=== PATIENT | female | born 1965 | race Caucasian/White ===

== ENCOUNTER 2023-06-03 07:39 | Emergency (ER) | payer BC, SELFPAY ==
[2023-06-03 07:40] VITALS: BP 186/124
[2023-06-03 08:04] VITALS: BP 161/98
--- NOTE | 2023-06-03 08:08 | ED.GENMED ---
History of Present Illness
General
Chief Complaint: Blood Pressure Problem
Time Seen by Provider: 06/03/23 07:45
Travel History
Have you had any contact with someone who has COVID-19?: No
Do you have any symptoms of coronavirus? Fever > 100 degrees, chills, cough, shortness of breath, sore throat, loss of taste or smell, muscle aches, or headache?: No
History of Present Illness
History of Present Illness:
58-year-old female with history of hypertension and hyperlipidemia presents to the emergency department for evaluation of general sensation of jitteriness and anxiety coupled with heart palpitations beginning this morning. She noted that her blood
pressure was elevated in the 150s systolic and as a result took an additional 10 mg of lisinopril. She denies any chest pain or shortness of breath. Denies any recent health changes or medication changes. No recent fevers, chills, or sweats.
Review of Systems
Review of Systems
Allergies reviewed?: Yes
All Other Systems: ROS reviewed and negative except as documented in HPI and ROS
Phy Exam
Physical Exam
Physical Exam:
GEN: Well appearing, NAD, WDWN
Eyes: PERRLA, EOMs intact, no scleral icterus
HENT: NCAT, oral mucosa moist, no JVD, no cervical adenopathy.
Lungs: CTAB, no wheezes, rales, rhonchi, normal chest wall excursion
Cardiac: Mildly tachycardic, regular, no murmurs
Abdomen: S, NT, ND, NABS, no masses or hepatosplenomegaly
Neuro: AO x 3, no focal deficits to BUE/BLE. Generalized extremity tremors noted
MSK: No gross deformity or ecchymosis. No edema. No digital clubbing
Skin: No rashes, petechiae. Normal color, no pallor or jaundice.
Psych: Calm, cooperative, proper hygiene
Course
Orders/Labs/Results
Orders:
Orders
06/03/23 07:56
Electrocardiogram (*1) Urgent
Reason for Study: Hypertension, Benign
06/03/23 07:57
EKG- Treatment ONCE
06/03/23 08:09
Complete Blood Count/With Diff Urgent
Comprehensive Metabolic Panel Urgent
Free T4 Urgent
TSH Reflex To Free T4 Urgent
Abnormal Lab Results
06/03/23
08:09
RBC 4.13 L 10^6/uL
(4.20-5.40)
Hct 35.7 L %
(37.0-47.0)
MCH 32.4 H pg
(27.0-31.0)
MCHC 37.5 H g/dL
(33.0-37.0)
Carbon Dioxide 20 L mmol/L
(22-30)
BUN 20 H mg/dl
(7-17)
Glucose 116 H mg/dl
(70-99)
TSH (Reflex) 5.90 H uIU/ml
(0.47-4.68)
06/03/23 08:09
06/03/23 08:09
Vital Signs
Initial and Last Documented VS:
Initial Vital Signs
Temp Pulse Resp BP Pulse Ox
98.1 F 108 18 186/124 100
06/03/23 07:40 06/03/23 07:40 06/03/23 07:40 06/03/23 07:40 06/03/23 07:40
Last Documented Vital Signs
Temp Pulse Resp BP Pulse Ox
98.1 F 78 12 153/91 100
06/03/23 07:40 06/03/23 09:15 06/03/23 09:15 06/03/23 09:00 06/03/23 09:15
MDM/Problems Addressed
MDM/Problems Addressed:
58-year-old female presenting with symptoms of jitteriness and heart palpitations. EKG is unremarkable and she showed no signs of cardiac arrhythmia while in the emergency department. She certainly does have a mild resting tremor however labs are
otherwise reassuring, mildly elevated TSH with normal T4 reassuring against thyroid disorder. Unclear etiology to the symptoms but the patient is reassured there does not appear to be any major medical abnormality at this time. She has no focal
abnormalities to suggest stroke additionally no fevers or chills concerning for infectious etiology to the jitteriness. Recommend primary care follow-up if symptoms persist
Comment
Comment:
EKG independently interpreted by me shows normal sinus rhythm at a rate of [address] changes concerning for ischemia, QTc of 430
*Critical Care Note
Total Time (30-74mins, 75-104mins- exclusive of procedures): Not Applicable
ED Attending Note
-
Portions of this chart may have been created with voice recognition software.� Occasional wrong word or��sound alike� substitutions may have occurred due to the inherent limitations of voice recognition software.
Discharge Plan
Departure
Patient Disposition: Home (Routine Discharge)
Date of Disposition: 06/03/23
Time of Disposition: 09:44
Patient with high blood pressure during this ER visit?: No
Discharge Problem:
Palpitations
Instructions: Palpitations ED
Prescriptions:
No Action
multivitamin Tablet
1 tab PO DAILY
calcium 600 mg Capsule
600 mg PO DAILY
atorvastatin 20 mg Tablet
20 mg PO HS
lisinopril 10 mg Tablet
10 mg PO DAILY
omega [id number] oil [Fish Oil] 1,200 (144-216) mg Capsule
1 cap PO DAILY
Referrals:
Madhuri Avery CRNP [Family Provider] -
Interventions
Interventions:
*General Assessment Last Done: 06/03/23 07:40
*Neglect/Abuse Screening Last Done: 06/03/23 07:40
ED- Fall Risk Assessment Last Done: 06/03/23 08:29
*ED COVID-19 Vaccine History Last Done: 06/03/23 07:40
*Nursing Disposition Last Done: 06/03/23 10:24
ED- Cardiac Assessment Last Done: 06/03/23 07:55
ED- Neurological Assessment Last Done: 06/03/23 07:56
ED- Pulmonary Assessment Last Done: 06/03/23 07:56
Discharge Date and Time
Discharge Date/Time: 06/03/23 10:25
[2023-06-03 08:17] LABS: % Basophils 0.6 % (0-2); % Eosinophils 0.8 % (0-6); % Immature Granulocytes 0.4 % (0-0.5); % Lymphocytes 28.2 % (20.5-51.1); % Monocytes 5.8 % (1.7-9.3); % Neutrophils 64.2 % (42.2-75.2); Absolute Eosinophils 0.1 10^3/uL (0-0.7); Absolute Monocytes 0.4 10^3/uL (0.1-0.6); Absolute Neutrophils 4.6 10^3/uL (1.4-6.5); Hematocrit 35.7 % (37.0-47.0); Hemoglobin 13.4 g/dL (12.0-16.0); Mean Corp Hgb Conc. 37.5 g/dL (33.0-37.0); Mean Corpuscular Hgb 32.4 pg (27.0-31.0); Mean Corpuscular Volume 86.4 fL (81.0-99.0); Mean Platelet Volume 9.1 fL (7.4-10.4); Nucleated Red Blood Cells % 0 %; Platelet Count 315 10^3/uL (130-400); Red Blood Cell Count 4.13 10^6/uL (4.20-5.40); Red Cell Dist. Width 11.5 % (11.5-14.5); White Blood Cell Count 7.2 10^3/uL (4.8-10.8)
[2023-06-03 08:30] VITALS: BP 142/93
[2023-06-03 08:34] LABS: ALT (SGPT) 28 U/L (0-35); AST (SGOT) 29 U/L (14-36); Albumin 4.9 g/dl (3.5-5.0); Alkaline Phosphatase 74 U/L (38-126); Blood Urea Nitrogen 20 mg/dl (7-17); Calcium 9.6 mg/dl (8.4-10.2); Carbon Dioxide 20 mmol/L (22-30); Chloride 107 mmol/L (98-107); Glucose 116 mg/dl (70-99); Potassium 4.1 mmol/L (3.5-5.1); Sodium 138 mmol/L (135-145); Total Bilirubin 0.4 mg/dl (0.2-1.3); Total Protein 7.7 g/dl (6.3-8.2); eGFR > 60.00
[2023-06-03 09:00] VITALS: BP 153/91
[2023-06-03 09:41] LABS: Free T4 1.34 ng/dl (0.78-2.19)
== END 2023-06-03 10:25 | disposition home or self-care (01) ==
LOC: EMR 07:39
PROVIDERS: Physician Assistant; EMERGENCY PHYSICIAN Emergency Medicine; FAMILY PHYSICIAN Nurse Practitioner Family
DX: R00.2 Palpitations (principal); F41.9 Anxiety disorder, unspecified; I10 Essential (primary) hypertension; E78.5 Hyperlipidemia, unspecified
CPT/HCPCS: 99283; 80053; 84439; 84443; 85025; 93005